=== PATIENT | male | born 1980 | race American Indian/Alaskan Native ===

== ENCOUNTER 2018-10-15 19:46 | Emergency (ER) | payer BC ==
--- NOTE | 2018-10-15 19:52 | Emergency Department Report ---
Blank Doc - Documentation Documentation: This is a 38-year-old male that presents with concerns about HTN and URI sympt oms. Stated has history of HTN and has been taking HCTZ and Norvac but has not taken it for about a month. Denies any headache. Denies any other complaints. This initial assessment diagnostic orders/clinical plan/treatment(s) is/are subject to change based on patient's health status, clinical progression and re- assessment by fellow clinical providers in the ED. Further treatment and workup at subsequent clinical providers discretion. Patient/guardians urged not to elope from ED s their condition may be serious if not clinically assessed and managed. Initial orders include: 1-Patient sent to MAIN for further evaluation and treatment 2- CXR
[2018-10-15 19:54] VITALS: BP 148/115
--- NOTE | 2018-10-15 21:00 | Emergency Department Report ---
- General Chief Complaint: Upper Respiratory Infection Stated Complaint: COLD SX HBP Time Seen by Provider: 10/15/18 19:50 Source: patient, RN notes reviewed Mode of arrival: Ambulatory Limitations: No Limitations - History of Present Illness Initial Comments: This is a 38-year-old gentleman who is not known to this provider previously, who cannot recall the name of his local primary care doctor, who presents to the emergency room with a request for refill on HCTZ and Norvasc prescription; he cannot recall the doses of these prescription respectively, and reports he has not taken his medications for over a month. He endorses a secondary complaint of nasal sinus congestion, dry cough, sensation of sinus fullness and ear fullness, as well as subjective chills. The symptoms have been going on for the past week or so, and he endorses a positive sick contact in his significant other. He has not attempted NSAIDs or acetaminophen, but is taking mucolytic at home. He endorses a mild global throbbing headache, not sudden or thunderclap in nature, not the worse headache of his life, not maximal intensity at onset. MD Complaint: rhinorrhea, nasal congestion, sinus pain -: Gradual, days(s) Severity: mild Consistency: intermittent Improves With: nothing Worsens With: nothing Context: sick contacts, other (patient endorses tobacco consumption, black and mild, cigars smoke) Associated Symptoms: chills, headache, rhinorrhea, nasal congestion - Related Data Previous Rx's Medication Instructions Recorded Last Taken Type Docusate Sodium [Colace] 100 mg PO BID #60 capsule 08/23/18 Unknown Rx Acetaminophen [Tylenol Arthritis] 650 mg PO Q6HR PRN #30 tablet.er 10/15/18 Unknown Rx Amlodipine Besylate [Norvasc] 2.5 mg PO QDAY #30 tablet 10/15/18 Unknown Rx Benzonatate [Tessalon Perles] 100 mg PO Q8HR PRN #30 capsule 10/15/18 Unknown Rx Fluticasone [Flonase] 1 spray NS QDAY #1 bottle 10/15/18 Unknown Rx Ibuprofen [Motrin] 600 mg PO Q8H PRN #30 tablet 10/15/18 Unknown Rx guaiFENesin [Mucinex] 600 mg PO BID #30 tab.er.12h 10/15/18 Unknown Rx hydroCHLOROthiazide [Hctz] 12.5 mg PO QDAY #30 capsule 10/15/18 Unknown Rx Allergies Allergy/AdvReac Type Severity Reaction Status Date / Time No Known Allergies Allergy Unverified 08/23/18 16:16 ED Review of Systems ROS: Stated complaint: COLD SX HBP Other details as noted in HPI Constitutional: chills ENT: congestion, other. denies: ear pain Respiratory: denies: shortness of breath Cardiovascular: denies: chest pain Gastrointestinal: denies: abdominal pain Musculoskeletal: arthralgia Skin: denies: lesions Neurological: headache ED Past Medical Hx - Past Medical History Hx Hypertension: Yes Additional medical history: IBM (irregular bowel movements) - Surgical History Additional Surgical History: hernia repair - Social History Smoking Status: Current Every Day Smoker Substance Use Type: None - Medications Home Medications: Home Medications Medication Instructions Recorded Confirmed Last Taken Type Docusate Sodium [Colace] 100 mg PO BID #60 capsule 08/23/18 Unknown Rx Acetaminophen [Tylenol Arthritis] 650 mg PO Q6HR PRN #30 tablet.er 10/15/18 Unknown Rx Amlodipine Besylate [Norvasc] 2.5 mg PO QDAY #30 tablet 10/15/18 Unknown Rx Benzonatate [Tessalon Perles] 100 mg PO Q8HR PRN #30 capsule 10/15/18 Unknown Rx Fluticasone [Flonase] 1 spray NS QDAY #1 bottle 10/15/18 Unknown Rx Ibuprofen [Motrin] 600 mg PO Q8H PRN #30 tablet 10/15/18 Unknown Rx guaiFENesin [Mucinex] 600 mg PO BID #30 tab.er.12h 10/15/18 Unknown Rx hydroCHLOROthiazide [Hctz] 12.5 mg PO QDAY #30 capsule 10/15/18 Unknown Rx ED Physical Exam - General Limitations: No Limitations General appearance: alert, in no apparent distress - Head Head exam: Present: atraumatic, normocephalic - Eye Eye exam: Present: normal appearance, EOMI. Absent: nystagmus - ENT ENT exam: Present: normal exam, normal orophraynx, mucous membranes moist, TM's normal bilaterally, normal external ear exam - Neck Neck exam: Present: normal inspection, full ROM. Absent: tenderness, meningismus - Respiratory Respiratory exam: Present: normal lung sounds bilaterally. Absent: respiratory distress - Cardiovascular Cardiovascular Exam: Present: regular rate, normal rhythm, normal heart sounds. Absent: bradycardia, tachycardia, irregular rhythm, systolic murmur, diastolic murmur, rubs, gallop - GI/Abdominal GI/Abdominal exam: Present: soft. Absent: distended, tenderness, guarding, rebound, rigid, pulsatile mass - Rectal Rectal exam: Present: deferred - Extremities Exam Extremities exam: Present: normal inspection, full ROM, other (Extraocular movements intact. Tongue midline. No facial droop. Facial sensation intact to light touch in the V1, V2, V3 distribution bilaterally. 5 and 5 strength in 4 extremities.. Sensation is intact to light touch in 4 extremities.). Absent: calf tenderness - Back Exam Back exam: Present: normal inspection, full ROM. Absent: tenderness, CVA tenderness (R), paraspinal tenderness, vertebral tenderness - Neurological Exam Neurological exam: Present: alert, oriented X3, CN II-XII intact, normal gait, other (2+ pulses noted in the bilateral upper, lower extremities. Compartments soft. No long bony tenderness. The pelvis is stable.). Absent: motor sensory deficit - Psychiatric Psychiatric exam: Present: normal affect, normal mood - Skin Skin exam: Present: warm, dry, intact, normal color. Absent: rash ED Course Vital Signs 10/15/18 19:52 Temperature 98.6 F Pulse Rate 84 Respiratory 16 Rate Blood Pressure 148/115 O2 Sat by Pulse 99 Oximetry ED Medical Decision Making - Lab Data Vital Signs 10/15/18 19:52 Temperature 98.6 F Pulse Rate 84 Respiratory 16 Rate Blood Pressure 148/115 O2 Sat by Pulse 99 Oximetry - Radiology Data Radiology results: image reviewed interpreted by me: X-ray of the chest is negative for acute disease. - Medical Decision Making Differential diagnosis, including not limited to: Medication refill, viral syndrome Assessment and plan: 46-year-old gentleman requesting medication refill, and endorsing a viral syndrome-like symptoms. The patient is afebrile, with reassuring vital signs, speaking on a cellular phone, and is currently eating [employer] fried chicken. The patient was counseled as to diet and lifestyle modifications, tobacco cessation, and he can follow-up as an outpatient primary care doctor. He does not appear to have an emergent medical condition presently. Critical care attestation.: If time is entered above; I have spent that time in minutes in the direct care of this critically ill patient, excluding procedure time. ED Disposition Clinical Impression: Medication refill, URI (upper respiratory infection) Disposition: TO HOME OR SELFCARE Is pt being admited?: No Does the pt Need Aspirin: No Condition: Stable Instructions: Viral Syndrome (ED) Additional Instructions: Symptoms likely coming from upper respiratory tract infection, and will likely last anywhere from 3-4 weeks. Patient should discontinue tobacco consumption, cigar consumption, black and mild consumption. Use a vaporizer, humidifier, or steam as often as as needed for symptom relief, and follow up with her primary care doctor within the next month. Please return to the emergency room right away with new, worsening or different symptoms. Referrals: [facility] [Provider Group] - as needed [facility] [Outside] - as needed
--- NOTE | 2018-10-15 21:44 | XRay Report ---
FINAL REPORT EXAM: XR CHEST ROUTINE 2V HISTORY: cough TECHNIQUE: 2 views of the chest. PRIORS: None. FINDINGS: The cardiomediastinal silhouette appears normal. The lungs are clear. The bones and soft tissues are unremarkable. IMPRESSION: No evidence of acute cardiopulmonary disease
== END 2018-10-15 21:24 | disposition home or self-care (01) ==
LOC: ED 19:46
DX: J06.9 Acute upper respiratory infection, unspecified (principal); I10 Essential (primary) hypertension; F17.200 Nicotine dependence, unspecified, uncomplicated
CPT/HCPCS: 71046

== ENCOUNTER 2021-09-19 17:31 | Emergency (ER) | payer BC, OTHER ==
[2021-09-19] MEDS ORDERED: SODIUM CHLORIDE 0.9% 1000 ML 1,000 ML IV ONE (20:25)
[2021-09-19] MEDS ORDERED: KETOROLAC 30 MG/1 ML INJ IV ONE (20:26)
--- NOTE | 2021-09-19 20:30 | Emergency Department Report ---
HPI - General Chief Complaint: Pain General - HPI HPI: 41-year-old male with history of hypertension presents complaining of severe left calf pain for the last 3 days. The patient states that for the past several months he has had alternating episodes of swelling and pain of his lower extremities alternating between the left and right side. He says that it comes on over the course of a few days and then resolves over the course of few days to weeks. He has not seen a doctor for this. He has had increased swelling and pain of his left calf and foot for the past 3 days but today became so severe that he was unable to walk and decided to call 911. He has not tried taking anything for the pain. There are no known aggravating or alleviating factors. He denies any associated headache, vision change, congestion, neck pain, back pain, chest pain, shortness of breath, cough, abdominal pain, nausea/vomiting, focal weakness, sensory changes, or any other complaints. No recent travel, surgery, or prolonged immobilization. ED Past Medical Hx - Past Medical History Hx Hypertension: Yes Additional medical history: IBM (irregular bowel movements) - Surgical History Additional Surgical History: hernia repair - Social History Smoking Status: Current Every Day Smoker Substance Use Type: None - Medications Home Medications: Home Medications Medication Instructions Recorded Confirmed Last Taken Type Docusate Sodium [Colace] 100 mg PO BID #60 capsule 08/23/18 Unknown Rx Acetaminophen [Tylenol Arthritis] 650 mg PO Q6HR PRN #30 tablet.er 10/15/18 Unknown Rx Amlodipine Besylate [Norvasc] 2.5 mg PO QDAY #30 tablet 10/15/18 Unknown Rx Benzonatate [Tessalon Perles] 100 mg PO Q8HR PRN #30 capsule 10/15/18 Unknown R x Fluticasone [Flonase] 1 spray NS QDAY #1 bottle 10/15/18 Unknown Rx Ibuprofen [Motrin] 600 mg PO Q8H PRN #30 tablet 10/15/18 Unknown Rx guaiFENesin [Mucinex] 600 mg PO BID #30 tab.er.12h 10/15/18 Unknown Rx hydroCHLOROthiazide [Hctz] 12.5 mg PO QDAY #30 capsule 10/15/18 Unknown Rx Ibuprofen [Motrin 600 MG tab] 600 mg PO Q8H PRN #15 tablet 09/19/21 Unknown Rx cephALEXin [Keflex] 500 mg PO Q12HR #14 cap 09/19/21 Unknown Rx ED Review of Systems ROS: Stated complaint: LT FOOT PAIN Other details as noted in HPI Comment: All other systems reviewed and negative Constitutional: denies: chills, fever Eyes: denies: eye pain, vision change ENT: denies: throat pain, congestion Respiratory: denies: cough, shortness of breath Cardiovascular: denies: chest pain, palpitations Gastrointestinal: denies: abdominal pain, nausea, vomiting Genitourinary: denies: dysuria, frequency Musculoskeletal: other (Left calf and ankle pain/swelling). denies: back pain Skin: denies: rash, pruritus Neurological: denies: headache, weakness, numbness Hematological/Lymphatic: denies: easy bleeding Physical Exam - Physical Exam Vital Signs: Vital Signs 09/19/21 17:44 Temperature 98.7 F Pulse Rate 100 H Respiratory 16 Rate Blood Pressure 170/100 [Right] O2 Sat by Pulse 98 Oximetry Physical Exam: GENERAL: Well developed and well nourished. No acute distress HEAD: Normocephalic. No obvious signs of trauma. ENT: Dry mucous membranes. EYES: Extraocular movements are intact. Pupils are equal round and reactive to light bilaterally NECK: Supple. Full ROM is intact. Trachea is midline. LUNGS: Nonlabored breathing. Equal chest rise bilaterally. Clear to auscultation bilaterally. CARDIOVASCULAR: Regular rate and rhythm. No murmurs or rubs. VASCULAR: Cap refill < 2 seconds ABDOMEN: Abdomen is soft and nondistended. There is no significant tenderness, guarding or rebound. SKIN: Skin is warm and dry NEURO: Patient is awake, alert, and oriented. net [employer] architect II-XII grossly intact. No focal deficits. Normal motor and sensory exam throughout. Normal speech. MUSCULOSKELETAL: No obvious deformities. There is soft tissue swelling noted over the left proximal foot, ankle, and distal leg without overlying erythema, warmth, or skin changes. The patient has full range of motion throughout with the exception of the left ankle which is limited by pain. The patient's left lower extremity compartments are soft. He has 2+ DP/PT pulses bilaterally. Normal Garg test. No tenderness to palpation of the medial/lateral malleolus or base of the fifth metatarsal. BACK/SPINE: No midline tenderness or step-offs of the C/T/L spine. No costo vertebral angle tenderness. ED Course Vital Signs 09/19/21 17:44 Temperature 98.7 F Pulse Rate 100 H Respiratory 16 Rate Blood Pressure 170/100 [Right] O2 Sat by Pulse 98 Oximetry ED Medical Decision Making - Lab Data Result diagrams: 09/19/21 20:35 09/19/21 20:35 - EKG Data -: EKG Interpreted by Tx - EKG Data 09/19/21 21:54 Normal sinus rhythm. Left axis deviation. Intervals. No ectopy. No significant ST segment or T wave abnormalities. - Radiology Data Radiology results: report reviewed - Medical Decision Making 41-year-old male presents with 3 days of left lower extremity pain and swelling involving the proximal foot and calf. The patient states that for several months he has had alternating episodes of swelling and pain in the right lower extremity and left lower extremity which lasts for a few days to weeks at a time and then resolves. This feels and presented like prior episodes of pain and swelling with the exception that it is so severe he cannot walk. On initial assessment he was afebrile with normal vital signs with exception of elevated blood pressure and heart rate in the 100s. On physical examination he has dry mucous membranes. He has a nonfocal neurologic exam. There is soft tissue swel ling noted over the left proximal foot, ankle, and distal leg without erythema, warmth, or overlying skin changes. Garg test is normal. Compartments are soft. Given that this is not a traumatic injury but has been happening to the patient on and off for the past several months, I am less suspicious for acute fracture/dislocation. Nonetheless, we will perform broad work-up with a full set of labs, EKG, chest x-ray, plain film x-rays of the left ankle, and duplex ultrasound of the lower extremity to assess for evidence of DVT. We will give 1 L of IV fluids and Toradol for pain and reassess Chest x-ray reveals no acute abnormalities. Plain film x-ray of the left ankle reveals no acute abnormalities. Duplex ultrasound of the bilateral lower extremities reveals no evidence of DVT. Labs have resulted and reveal no significant leukocytosis or anemia. Creatinine is within normal range. The patient is noted to be hypokalemic with potassium of 3.2 which we will replete. Troponin is negative. BNP is negative. On repeat assessment, the patient is eating and talking on the phone. He reports that his pain is improved but that he still feels he would have difficulty walking. We discussed the results of the diagnostic studies which do not show an obvious etiology for the patient's symptoms. Nonetheless, given that he is noted to have soft tissue swelling and cellulitis cannot be definitively ruled out, we will treat with Keflex 500 mg twice daily x7 days. I also advised the patient to follow-up soon as possible with an orthopedic surgeon for which I have given him a referral. He will be given a hard sole shoe and crutches. He was instructed to return to the emergency department should he develop significantly worsening pain, firmness of the lower extremity, or any other new health concerns. He expressed understanding and agreement with this plan of care. Critical care attestation.: If time is entered above; I have spent that time in minutes in the direct care of this critically ill patient, excluding procedure time. ED Disposition Clinical Impression: Hypokalemia, Pain and swelling of left lower extremity Disposition: HOME / SELF CARE / HOMELESS Is pt being admited?: No Condition: Stable Instructions: Hypokalemia, Pain Without a Known Cause Additional Instructions: Please take the prescribed antibiotic exactly as directed. For pain, I recommend that you take ibuprofen 600 mg 3 times daily with or without Tylenol. Do not take this medication on empty stomach. You need to follow-up with an orthopedic surgeon within the next few days. Return to the emergency department should you develop significantly worsening pain or any other new health co ncerns Prescriptions: cephALEXin [Keflex] 500 mg PO Q12HR #14 cap Ibuprofen [Motrin 600 MG tab] 600 mg PO Q8H PRN #15 tablet PRN Reason: Pain Referrals: [facility] [Provider Group] - 3-5 Days DESIRE GARCIA MD [Staff Physician] - 2-3 Days
--- NOTE | 2021-09-19 20:55 | XRay Report ---
XR ankle 2V LT INDICATION / CLINICAL INFORMATION: pain + swelling. COMPARISON: None available. FINDINGS: BONES/JOINT(S): No acute fracture or subluxation. No significant degenerative changes. SOFT TISSUES: No significant abnormality. ADDITIONAL FINDINGS: None. Signer Name: Galo Simmons MD Signed: 09/19/2021 8:51 PM Workstation Name: [id number]
--- NOTE | 2021-09-19 20:55 | XRay Report ---
CHEST 1 VIEW 09/19/2021 7:48 PM INDICATION / CLINICAL INFORMATION: LE swelling. COMPARISON: 10/15/2018 FINDINGS: SUPPORT DEVICES: None. HEART / MEDIASTINUM: No significant abnormality. LUNGS / PLEURA: No significant pulmonary or pleural abnormality. No pneumothorax. ADDITIONAL FINDINGS: No significant additional findings. IMPRESSION: 1. No acute findings. Signer Name: Galo Simmons MD Signed: 09/19/2021 8:51 PM Workstation Name: [id number]
[2021-09-19 21:02] LABS: Hematocrit 45.7 % (35.5-45.6); Hemoglobin 15.1 gm/dl (11.8-15.2); Mean Corpuscular HGB Conc 33 % (32-34); Mean Corpuscular Volume 110 fl (84-94); Platelet Count 200 K/mm3 (140-440); Red Blood Count 4.16 M/mm3 (3.65-5.03); Red Cell Distribution Width 14.5 % (13.2-15.2)
[2021-09-19 21:12] LABS: BUN/Creatinine Ratio 8; Blood Urea Nitrogen 8 mg/dL (9-20); Calcium 8.7 mg/dL (8.4-10.2); Hemolysis Index 30; INR 0.89 (0.87-1.13); Partial Thromboplastin Time 26.4 Sec. (24.2-36.6)
--- NOTE | 2021-09-19 21:35 | Vascular Lab Report ---
DUPLEX DOPPLER LOWER EXTREMITY VEINS, BILATERAL INDICATION / CLINICAL INFORMATION: LE swelling + pain. TECHNIQUE: Duplex doppler imaging was performed through the veins of both lower extremities using robin ous compression and other maneuvers. COMPARISON: None available. FINDINGS: RIGHT COMMON FEMORAL VEIN: Negative. RIGHT FEMORAL VEIN: Negative. RIGHT POPLITEAL VEIN: Negative. RIGHT CALF VEINS: Negative. LEFT COMMON FEMORAL VEIN: Negative. LEFT FEMORAL VEIN: Negative. LEFT POPLITEAL VEIN: Negative. LEFT CALF VEINS: Negative. ADDITIONAL FINDINGS: None. IMPRESSION: 1. No sonographic evidence for DVT in either lower extremity. Signer Name: Minor Guerrero MD Signed: 09/19/2021 9:31 PM Workstation Name: [id number]
[2021-09-19] MEDS ORDERED: POTASSIUM CHLORIDE ER 20 MEQ TAB PO ONE (21:52)
[2021-09-20 00:29] VITALS: BP 162/111
[2021-09-20 02:31] LABS: Basophils % (Manual) 0 % (0.0-1.8); Eosinophils % (Manual) 0 % (0.0-4.3); Total Cells Counted 100
[2021-09-20 02:34] LABS: Target Cells Few
[2021-09-20 02:35] LABS: Platelet Estimate Consistent w Auto; RBC Morphology Normal
--- NOTE | 2021-09-20 08:52 | Electrocardiograph Report ---
[facility] Test Date: 2021-09-19 Test Time: 21:45:10 Pat Name: MURRAY CHOI Department: Room: Gender: M [employer] Consultant: MERCEDEZ : 1980 Requested By: TOR PÉREZ Order Number: [id number] Reading MD: Jack Akhtar Measurements Intervals [place] Rate: 90 P: FL: QRS: -47 QRSD: 84 T: -3 QT: 358 QTc: 439 Interpretive Statements Atrial fibrillation nonspecific st-t No previous ECG available for comparison Electronically Signed On 09-20-2021 8:51:42 EST by Jack Akhtar
== END 2021-09-20 | disposition home or self-care (01) ==
LOC: ED 17:31
DX: M79.605 Pain in left leg (principal); M79.89 Other specified soft tissue disorders; I10 Essential (primary) hypertension; F17.200 Nicotine dependence, unspecified, uncomplicated; Z98.890 Other specified postprocedural states
CPT/HCPCS: 36415; 71045; 73600; 80048; 83880; 84484; 85007; 85025; 85610; 85730; 93005; 93010; 93970; 96361; 96374; 99284; J1885; J7030; Q0162